=== PATIENT | female | born 1945 | race Caucasian/White ===

== ENCOUNTER 2021-02-10 20:32 | Observation (INO) ==
[2021-02-10] MEDS ORDERED: NITROGLYCERIN 2% OINT 1 INCH/GM PACK TOP STA (22:44)
[2021-02-10] MEDS ORDERED: ENOXAPARIN 100 MG/ML SYRINGE SUBCUT STA (22:44)
[2021-02-10] MEDS ORDERED: ALUM/MAG/SIMETH/LIDO VISC 1:1 30 ML BOTTLE PO STA (22:44)
[2021-02-10] MEDS ORDERED: ONDANSETRON 4 MG/2 ML VIAL IV STA (22:44)
[2021-02-10] MEDS ORDERED: ASPIRIN 325 MG TABLET PO STA (22:44)
[2021-02-10] MEDS ORDERED: MORPHINE 4 MG/1 ML VIAL IV STA (22:44)
[2021-02-10 23:37] LABS: Basophils # 0.1 10*3/uL (0.0-0.2); Basophils % 0.7 % (0.0-0.8); Eosinophils # 0.3 10*3/uL (0.0-0.87); Eosinophils % 3.7 % (0.00-10.9); Hematocrit 34.5 VOL% (35.7-47.0); Hemoglobin 10.7 GM/DL (12.0-16.0); Immature Granulocytes % 0.3 %; Immature Granulocytes Absolute 0.02 #; Lymphocytes # 2.5 10*3/uL (1.4-4.0); Lymphocytes % 37.1 % (21.3-54.2); Mean Corpuscular Volume 95.8 FL (87-102); Mean Platelet Volume 14.2 FL (9.6-12.0); Monocytes % 6.7 % (1.7-12.7); Neutrophils % 51.5 % (38.7-73.9); Platelet Count 131 T/CUMM (130-400); Red Cell Distribution Width 13.8 % (9.3-17.3); White Blood Count 6.7 T/CUMM (4-12)
[2021-02-10 23:38] LABS: PT Patient Result 10.7 SECS (9.8-11.9)
[2021-02-10 23:42] LABS: Alanine Aminotransferase 32 U/L (13-56); Albumin 2.8 G/DL (3.4-5.0); Alkaline Phosphatase 164 U/L (45-117); Aspartate Amino Transferase 36 U/L (0-37); Bilirubin,Total < 0.39 MG/DL (0.2-1.0); Blood Urea Nitrogen 30 MG/DL (7-18); Calcium 8.3 MG/DL (8.5-10.1); Carbon Dioxide 28 MMOL/L (21-32); Estimated Glom Filtration Rate 49 ML/MIN; Glucose 110 MG/DL (74-106); Osmolality,Calculated 287.3 MOS/KG (273-304); Potassium 4.3 MMOL/L (3.5-5.1); Sodium 141 MMOL/L (136-145)
[2021-02-11] MEDS ORDERED: guaiFENesin/DM ER 600-30 MG TABLET PO PRN (00:08)
[2021-02-11] MEDS ORDERED: ONDANSETRON 4 MG/2 ML VIAL IV PRN (00:08)
[2021-02-11] MEDS ORDERED: GLUCAGON 1 MG VIAL IM PRN ×2 (00:08)
[2021-02-11] MEDS ORDERED: diphenhydrAMINE CAP 25 MG CAPSULE PO PRN (00:08)
[2021-02-11] MEDS ORDERED: NICOTINE 21 MG/24 HR PATCH TRANSDERM PRN (00:08)
[2021-02-11] MEDS ORDERED: DOCUSATE SODIUM 100 MG CAPSULE PO PRN (00:08)
[2021-02-11] MEDS ORDERED: hydrALAZINE 20 MG/1 ML VIAL IV PRN (00:08)
[2021-02-11] MEDS ORDERED: ZALEPLON 5 MG CAPSULE PO PRN (00:08)
[2021-02-11] MEDS ORDERED: ALBUTEROL/IPRATROPIUM 3 ML NEB RESP TX PRN (00:08)
[2021-02-11] MEDS ORDERED: DEXTROSE 50% 25 GM/50 ML VIAL IV PRN ×2 (00:08)
[2021-02-11] MEDS: MORPHINE 4 MG/1 ML VIAL IV PRN ×2 (03:06→08:37)
[2021-02-11 03:25] LABS: Basophils # 0.1 10*3/uL (0.0-0.2); Eosinophils # 0.3 10*3/uL (0.0-0.87); Hematocrit 34.5 VOL% (35.7-47.0); Hemoglobin 10.7 GM/DL (12.0-16.0); Immature Granulocytes % 0.4 %; Immature Granulocytes Absolute 0.03 #; Lymphocytes # 2.9 10*3/uL (1.4-4.0); Lymphocytes % 40.1 % (21.3-54.2); Mean Platelet Volume 13.5 FL (9.6-12.0); Monocytes % 6.4 % (1.7-12.7); Neutrophils % 48.1 % (38.7-73.9); Platelet Count 122 T/CUMM (130-400); Red Blood Count 3.63 MC/CUMM (3.8-5.5); White Blood Count 7.2 T/CUMM (4-12)
[2021-02-11 03:47] LABS: Calcium 8.8 MG/DL (8.5-10.1); Osmolality,Calculated 283.5 MOS/KG (273-304); Potassium 4.2 MMOL/L (3.5-5.1)
[2021-02-11 03:51] LABS: Hypochromasia 1+; Microcytosis 1+
[2021-02-11] MEDS ORDERED: LEVOTHYROXINE 137 MCG TABLET PO SCH (06:30)
[2021-02-11] MEDS ORDERED: INSULIN LISPRO 100 UNIT/ML SUBCUT SCH (07:30)
[2021-02-11] MEDS ORDERED: PANTOPRAZOLE 40 MG TABLET PO SCH (09:00)
[2021-02-11] MEDS ORDERED: atenoloL 50 MG TABLET PO SCH (09:00)
[2021-02-11] MEDS ORDERED: POTASSIUM CHLORIDE 20 MEQ TABLET PO SCH (09:00)
[2021-02-11] MEDS ORDERED: amLODIPine 10 MG TABLET PO SCH (09:00)
[2021-02-11] MEDS ORDERED: ASPIRIN EC 81 MG TABLET PO SCH (09:00)
[2021-02-11] MEDS ORDERED: FUROSEMIDE 40 MG TABLET PO SCH (09:00)
[2021-02-11] MEDS ORDERED: ENOXAPARIN 40 MG/0.4 ML SYRINGE SUBCUT SCH (09:00)
[2021-02-11] MEDS ORDERED: VENLAFAXINE 75 MG TABLET PO SCH (09:00)
[2021-02-11 09:03] VITALS: BP 150/71
[2021-02-11] MEDS ORDERED: SIMVASTATIN 20 MG TABLET PO SCH (21:00)
== END 2021-02-11 12:25 | disposition home or self-care (01) ==
LOC: N.EDINP 20:32 → N.ED 20:32 → N.4E 02-11 02:19
PROVIDERS: ADMIT Internal Medicine Geriatric Medicine; ATTEND Internal Medicine Geriatric Medicine